=== PATIENT | male | born 1975 | race Hispanic/Latino ===

== ENCOUNTER 2016-10-04 22:57 | Emergency (ER) | payer OTHER, BC ==
[2016-10-04 22:57] VITALS: BMI 26.6
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
[2016-10-04 23:45] VITALS: PULSE 80; TEMP 97.9
[2016-10-04 23:49] VITALS: BP 135/102
[2016-10-05 01:28] VITALS: RESP 16; O2SAT 99
--- NOTE | 2016-10-05 08:08 | RAD ---
PROCEDURE: Cervical Spine Radiographs. HISTORY: Pain. COMPARISON: None. FINDINGS: BONES: There straightening of the normal cervical lordosis. No fracture. Dens Intact. Mild anterior spondylosis moderate at C3. Small attempted cervical loop rib right C7 level DISC SPACES: Normal. SOFT TISSUES: Normal. No prevertebral soft tissue swelling. OTHER FINDINGS: Mild diffuse bilateral apophyseal joint hypertrophic slightly hyperdense arthrosis. No significant appearing foraminal stenosis suggested on oblique views IMPRESSION: Osteoarthrosis. No fracture. Cervical spine straightening
== END 2016-10-05 01:14 | disposition home or self-care (01) ==
LOC: ED 22:57
DX: S16.1XXA Strain of muscle, fascia and tendon at neck level, initial encounter (principal); S39.012A Strain of muscle, fascia and tendon of lower back, initial encounter; V49.49XA Driver injured in collision with other motor vehicles in traffic accident, initial encounter; Y92.410 Unspecified street and highway as the place of occurrence of the external cause